=== PATIENT | female | born 1955 | race Caucasian/White ===

== ENCOUNTER 2017-04-06 11:09 | Emergency (ER) | payer BC ==
[~2017-04-06] VITALS: Ht 162.6 cm; Wt 91.8 kg
[2017-04-06] MEDS ORDERED: SODIUM CHLORIDE 0.9% 1,000 ML IV ONE (11:33)
[2017-04-06] MEDS ORDERED: MAALOX/HYOSCYAMINE/LIDOCAINE 45 ML BOTTLE PO ONE (12:00)
[2017-04-06] MEDS ORDERED: SODIUM CHLORIDE 0.9% 1,000ML IVBOLUS ONE (12:00)
[2017-04-06] MEDS ORDERED: SODIUM CHLORIDE FLUSH 10ML SYR IVF ONE (12:00)
[2017-04-06] MEDS ORDERED: FAMOTIDINE 20 MG/2 ML IVP ONE (12:00)
[2017-04-06 12:08] LABS: ASPARTATE AMINO TRANSFERASE 21 U/L (15-37); BLOOD UREA NITROGEN 24 mg/dL (7-18)
[2017-04-06] MEDS ORDERED: FAMOTIDINE 20 MG/2 ML ONE (12:19)
[2017-04-06] MEDS ORDERED: MAALOX/HYOSCYAMINE/LIDOCAINE 45 ML BOTTLE ONE (12:19)
[2017-04-06] MEDS ORDERED: SERT25TA3 PO (12:46)
[2017-04-06] MEDS ORDERED: INSU100V13 SC (12:46)
[2017-04-06] MEDS ORDERED: INSU100C SQ-INSULIN (12:46)
[2017-04-06] MEDS ORDERED: METF10002 PO (12:46)
[2017-04-06] MEDS ORDERED: CLON0.25 PO (12:46)
[2017-04-06] MEDS ORDERED: LIDOCAINE-MPF 2% ,5ML ONE (14:08)
[2017-04-06 14:54] VITALS: BP 118/84
== END 2017-04-06 14:57 | disposition home or self-care (01) ==
LOC: ED 13:51
DX: K29.50 Unspecified chronic gastritis without bleeding (principal); E11.65 Type 2 diabetes mellitus with hyperglycemia; I10 Essential (primary) hypertension; Z90.49 Acquired absence of other specified parts of digestive tract
CPT/HCPCS: 36415; 74022; 80053; 81001; 82010; 83690; 85025; 87086; 87147; 93005; 96361; 96374; 99285; J7030; S0028

== ENCOUNTER → 2017-08-03 | Outpatient (CLI) | payer BC ==
[~2017-08-03] MED LIST: CLON0.25 PO; INSU100C SQ-INSULIN; INSU100V13 SC; METF10002 PO; SERT25TA3 PO
== END | disposition home or self-care (01) ==
LOC: CFH 12:21
PROVIDERS: ATTEND Nurse Practitioner Primary Care
DX: J44.9 Chronic obstructive pulmonary disease, unspecified (principal)
CPT/HCPCS: 71020